=== PATIENT | female | born 2005 | race Caucasian/White ===

== ENCOUNTER 2023-09-16 08:47 | Day surgery (SDC) | payer OTHER, SELFPAY ==
[2023-09-16] VITALS (16 sets, daily range): BP systolic 98–149; BP diastolic 58–78; PULSE 105–137; RESP 16–28; TEMP 36.2–37.3; O2SAT 99–100; BMI 19.1
--- NOTE | 2023-09-16 | ECG_ITS ---
Test Reason : SYNCOPE Blood Pressure : / mmHG Vent. Rate : 122 BPM Atrial Rate : 122 BPM P-R Int : 124 ms QRS Dur : 068 ms QT Int : 298 ms P-R-T Axes : 072 090 049 degrees QTc Int : 424 ms Sinus tachycardia Rightward axis Borderline ECG No previous ECGs available Referred By: Generic ED Physician Electronically Signed By:ALYSSA GOMEZ MD
--- NOTE | ~2023-09-16 | CT_ITS ---
EXAMINATION: CT abdomen pelvis w IV con CLINICAL INFORMATION: Reason for Exam lower abdominal pain, r/o acute appy COMPARISON: No prior CT available for comparison. TECHNIQUE: Multidetector volumetric imaging was performed from the superior aspect of the liver through the pubic symphysis 85 mL of Omnipaque 350 injected Sagittal and coronal reformatted images were obtained on the technologist's workstation. This CT examination was performed using dose optimization techniques as appropriate, variously including the following: *Automated exposure control *Adjustment of mA and/or kV according to patient size (this includes techniques or standardized protocols for targeted exams where dose is matched to indication/reason for exam; i.e. extremities or head) *Use of iterative reconstruction technique DLP: 298 mGy-cm FINDINGS: LOWER THORAX: Included lung bases are clear. HEPATOBILIARY: No focal hepatic lesions. No biliary ductal dilatation. GALLBLADDER: Gallbladder unremarkable. SPLEEN: Spleen is normal in size. PANCREAS: No focal mass or ductal dilatation. STOMACH AND GASTROINTESTINAL TRACT: Stomach is grossly unremarkable. There is no bowel distention or thickening. No CT evidence of appendicitis. ADRENALS: No adrenal nodules. KIDNEYS/URETERS: No hydronephrosis, stones or solid mass lesions. URINARY BLADDER: Partially decompressed. PELVIC VISCERA: There is a free fluid in the pelvis hyperdense fluid suggesting blood bleeding. Complex right pelvic mass 2.8 cm might be of right ovarian origin could be a recently ruptured follicle. Engorgement of the periuterine and pelvic veins suggesting probably pelvic congestion. PERITONEUM: Free fluid and blood in the abdomen peritoneum, no free air. LYMPH NODES: No lymphadenopathy. VASCULAR:Abdominal aorta normal in size, no aneurysm found. BONES, ABDOMINAL WALL AND SOFT TISSUES: Age-appropriate changes of the spine and skeletal system, no destructive osteolytic or osteosclerotic bone lesion found CT/CT abdomen pelvis w IV con IMPRESSION: 1. Free fluid in the abdomen and pelvis, ascites, within the fluid there is hyperdense fluid in the pelvis suggesting intraperitoneal active bleeding. This is of uncertain etiology and source. Urgent SPORTS SPECIALIST consultation recommended. May consider diagnostic paracentesis. 2. Complex right pelvic mass 2.8 cm might be of right ovarian origin could be a recently ruptured follicle. 3. Engorgement of the periuterine and pelvic veins suggesting pelvic congestion. 4. No CT evidence of appendicitis. (Referring physician staff is being called, by physician staff assistance, to be alerted of the above critical findings and recommendations.) 09/16/2023 12:06 PM AJ
[2023-09-16 09:15] LABS: MANUAL DIFF FLAG NO
[2023-09-16 09:18] LABS: Basophils Percent Auto 0.2 % (0-2); Hematocrit 28.6 % (37.0-47.0); Hemoglobin 9.9 g/dl (12.0-16.0); Imm Gran Abs Auto 0.09 X10*3/uL (0.00-0.03); Imm Gran Pct Auto 0.5 % (0.0-0.4); Lymphocytes Absolute Auto 1.4 X10*3/uL (1.2-4.9); Lymphocytes Percent Auto 8.3 % (20-40); Mean Corpuscular HGB Conc 34.6 g/dl (31.0-35.0); Mean Corpuscular Hemoglobin 31.1 pg (27.0-33.0); Mean Corpuscular Volume 89.9 fL (80.0-98.0); Monocytes Absolute Auto 0.5 X10*3/uL (0.1-1.2); Monocytes Percent Auto 3.1 % (2-11); Neutrophils Percent Auto 87.9 % (45-73); Platelet Count 280 X10*3/uL (160-400); Red Blood Count 3.18 X10*6/uL (4.20-5.50); Red Cell Distribution Width 12.1 % (11.0-16.0)
[2023-09-16 09:24] LABS: Prothrombin Time 11.8 SEC (11.1-13.3)
[2023-09-16 09:27] LABS: Partial Thromboplastin Time 25.9 SEC (26.0-36.8)
--- NOTE | 2023-09-16 09:29 | ED.ABDPAIN ---
HPI - Abdominal Pain General Chief Complaint: Syncope Stated Complaint: abdominal pain, fainted this morning Time Seen by Provider: 09/16/23 09:08 Source: patient Mode of arrival: ambulatory Limitations: no limitations History of Present Illness ED Provider: Nubia Bennett APRN HPI narrative: 18-year-old female with no known medical history presents the ER with complaints of lower abdominal pain which began last evening with several episodes of diarrhea and 1 episode of vomiting. Patient reports she had some slight discomfort 6 days ago her lower abdomen but this resolved after about 24 hours. She denies any urinary symptoms, fevers, chills. Patient reports when she stands up she feels dizzy and she had several occasions when she was moving her bowels of fainting . She describes these as preceded with dizziness then black spots in vision. Patient reports they are witnessed by family and there was no fall or head strike noticed. Her last menstrual cycle was August 21. She is not currently on any contraception. She denies any abdominal surgical history. She denies any chest pain, shortness of breath, palpitations, black or bloody stools. Related Data Allergies Allergy/AdvReac Type Severity Reaction Status Date / Time No Known Allergies Allergy Verified 09/16/23 08:52 Review of Systems Review of Systems Yes all other systems are reviewed and are negative Constitutional: Reports no additional constitutional complaints, Denies body ache(s), Denies chills, Denies fever(s), Denies headache(s) and Denies weakness Eyes: Reports no additional eye complaints and Denies change in vision Reports system reviewed and no additional complaints, except as documented, Denies dizziness, Denies headache(s), Denies nasal congestion, Denies nasal discharge and Denies neck pain Cardiovascular: Reports no additional cardiovascular complaints, Denies chest pain, Reports syncope, Denies leg edema and Denies dyspnea Respiratory: Reports no additional respiratory complaints, Denies cough and Denies dyspnea Gastrointestinal: Reports no additional gastrointestinal complaints, Reports abdominal pain, Reports diarrhea, Reports nausea and Reports vomiting Genitourinary: Reports no additional female genitourinary complaints and Denies urinary incontinence Musculoskeletal: Reports no additional musculoskeletal complaints, Denies back pain, Denies arthralgias, Denies joint swelling, Denies neck pain, Denies numbness and Denies tingling Skin/Breast: Reports system reviewed and no additional complaints, except as docu and Denies rash Reports system reviewed and no additional complaints, except as documented, Denies Abnormal speech present, Denies dizziness, Reports syncope, Denies headache(s), Denies numbness, Denies tingling and Denies weakness PMFSH Past Medical History Attestation statement: The following information was validated with the patient. Source: old records reviewed and nursing notes reviewed Social History Social History Advance Directives: No Do you have a plan to hurt others: No Plan Physical Exam ED Vital Signs: Vital Signs - 24 hr 09/16/23 08:51 09/16/23 09:48 09/16/23 10:24 Temperature 97.2 F 98.7 F Pulse Rate 130 H 131 H 105 H Pulse Rate [Automated] Respiratory Rate 16 26 H Blood Pressure 114/76 108/62 98/58 L Pulse Oximetry 99 100 Oxygen Delivery Method Room Air Room Air 09/16/23 10:25 09/16/23 10:26 09/16/23 12:46 Temperature 99.1 F Pulse Rate 115 H 128 H 123 H Pulse Rate [Automated] Respiratory Rate 26 H Blood Pressure 106/64 108/61 111/64 Pulse Oximetry 100 Oxygen Delivery Method Room Air 09/16/23 13:27 09/16/23 13:42 09/16/23 13:55 Temperature 99.1 F 98 F Pulse Rate 126 H 124 H Pulse Rate [Automated] 120 H Respiratory Rate 28 H 16 Blood Pressure 138/78 149/78 H Pulse Oximetry Oxygen Delivery Method 09/16/23 13:55 Temperature Pulse Rate Pulse Rate [Automated] Respiratory Rate Blood Pressure Pulse Oximetry 100 Oxygen Delivery Method Room Air BMI result Body Mass Index 19.1 Const General: cooperative, healthy appearing, comfortable and no acute distress Orientation/consciousness: patient oriented x3 Limitations: no limitations HENMT Head: Yes normal to inspection Ears: hearing grossly normal bilaterally General nose exam: Normal external nose present Face and sinus: Yes normal facial exam Mouth: Normal oral and palatal mucosa present Throat: Yes posterior oropharynx normal Eyes General: appearance normal, both eyes and all related structures Pupils: Equal, round and reactive pupils present Neck Neck: Yes normal visual inspection Chest Chest palpation & inspection: normal inspection of the chest Resp Effort & Inspection: normal respiratory effort Auscultation: clear to auscultation bilaterally Cardio Rate: tachycardic Rhythm: regular rhythm Peripheral pulses: Peripheral pulses 2+ throughout GI Inspection: Yes normal to inspection Palpation (GI): Soft to palpation and Tenderness to palpation present (GI) in the LLQ and in the RLQ Auscultation: normal bowel sounds Back/Spine/Pelvis Thoracic/Lumbar Spine: thoracic and lumbar spine normal to inspection Skin General skin exam: no rashes or lesions noted Neuro General: patient oriented x3, no focal motor deficits and normal sensation to monofilament Cranial nerves: Yes Equal, round and reactive pupils present Cognition (Neuro): normal cognition Speech: No Abnormal speech present Gait exam (Neuro): Normal gait present Motor exam (neuro): 5/5 motor strength present throughout Extrem General: Yes normal to inspection Course Course Course Narrative: 1215- IMPRESSION: 1. Free fluid in the abdomen and pelvis, ascites, within the fluid there is hyperdense fluid in the pelvis suggesting intraperitoneal active bleeding. This is of uncertain etiology and source. Urgent BLOOD BANK LABORATORY TECHNOLOGIST consultation recommended. May consider diagnostic paracentesis. 2. Complex right pelvic mass 2.8 cm might be of right ovarian origin could be a recently ruptured follicle. 3. Engorgement of the periuterine and pelvic veins suggesting pelvic congestion. 4. No CT evidence of appendicitis. Repeat CBC sent. Type and screen sent. I consulted both gynecology and General surgery. Gynecology will be coming in to see the patient in general surgical consult as needed. Patient blood pressure stable. She is still tachycardic. She received an additional L of fluid. I consented her for blood. 2 units of PRBCs her placed on hold. Nursing and nursing underwriting clerks supervisor are aware as patient will likely need exploratory laparotomy and team was called Reevaluation(s) Reevaluation #1: Interval drop in hemoglobin and hematocrit. Patient consented for blood. 2 units of blood ordered. Patient will receive her 1st unit within [address] Frederick is at the bedside to see the patient. Reevaluation #2: 1330-going to OR with gynecology for exploratory laparotomy Medical Decision Making Medical Decision Making MDM Narrative: 18-year-old female with no known medical history presents the ER with complaints of lower abdominal pain which began last evening with several episodes of diarrhea and 1 episode of vomiting. Patient reports she had some slight discomfort 6 days ago her lower abdomen but this resolved after about 24 hours. She denies any urinary symptoms, fevers, chills. Patient reports when she stands up she feels dizzy and she had several occasions when she was moving her bowels of fainting . She describes these as preceded with dizziness then black spots in vision. Patient reports they are witnessed by family and there was no fall or head strike noticed. Her last menstrual cycle was August 21. She is not currently on any contraception. She denies any abdominal surgical history. She denies any chest pain, shortness of breath, palpitations, black or bloody stools. Patient with bilateral lower quadrant tenderness on exam. She is tachycardic. Her blood pressure is stable. I will obtain labs, UA, EKG, orthostatics. Patient will need US vs CT pending quant Differential Diagnosis Differential Diagnoses: The differential diagnosis associated with the presentation includes Ectopic , appendicitis, Syncope Admission/Observation Consideration of admission/observation: Escalation of care including admission/observation considered Active intraperitoneal bleeding requiring consultation by both gynecology and General surgery, admission for OR Consult Healthcare Provider Management of the patient was discussed with: Remote Sensing Specialist Yoly-shantanu course of care Lab Data MDM Lab Attestation statement: I reviewed the patient's lab results. 09/16/23 12:25 09/16/23 09:09 Labs: Lab Results 09/16/23 09/16/23 09/16/23 Range/Units 09:09 10:56 12:25 WBC 17.0 H 14.1 H (4.8-10.8) X10*3/uL RBC 3.18 L 2.83 L (4.20-5.50) X10*6/uL Hgb 9.9 L 8.8 L (12.0-16.0) g/dl Hct 28.6 L 25.2 L (37.0-47.0) % MCV 89.9 89.0 (80.0-98.0) fL MCH 31.1 31.1 (27.0-33.0) pg MCHC 34.6 34.9 (31.0-35.0) g/dl RDW 12.1 12.0 (11.0-16.0) % Plt Count 280 246 (160-400) X10*3/uL MPV 10.0 10.3 (9.4-12.3) fL Immature Gran % (Auto) 0.5 H 0.4 (0.0-0.4) % Neut % (Auto) 87.9 H 89.7 H (45-73) % Lymph % (Auto) 8.3 L 6.9 L (20-40) % [place] % (Auto) 3.1 2.9 (2-11) % Eos % (Auto) 0.0 0.0 (0-4) % Baso % (Auto) 0.2 0.1 (0-2) % Lymph # (Auto) 1.4 1.0 L (1.2-4.9) X10*3/uL [place] # (Auto) 0.5 0.4 (0.1-1.2) X10*3/uL Eos # (Auto) 0.0 0.0 (0.0-0.4) X10*3/uL Baso # (Auto) 0.0 0.0 (0.0-0.2) X10*3/uL Abs Immat Gran (auto) 0.09 H 0.06 H (0.00-0.03) X10*3/uL Absolute Neuts (auto) 15.0 H 12.6 H (2.0-8.3) x10*3/uL Absolute Nucleated RBC 0.000 0.000 (0.0-0.012) X10*3/uL Nucleated RBC % (auto) 0.0 0.0 (0.0-0.2) /100WBC PT 11.8 (11.1-13.3) SEC INR 1.0 (0.9-1.1) APTT 25.9 L (26.0-36.8) SEC Sodium 136 (135-145) mmol/L Potassium 4.1 (3.3-5.1) mmol/L Chloride 105 (96-108) mmol/L Carbon Dioxide 21 L (22-29) mmol/L Anion Gap 14 (12-20) BUN 15 (9-16) mg/dL Creatinine 0.75 (0.5-1.4) mg/dL Estim Creat Clear Calc 86.7 Estimated GFR > 60 Random Glucose 149 H (60-115) mg/dL Lactic Acid 1.9 (0.5-2.0) mmol/L Calcium 8.9 (8.4-10.2) mg/dL Magnesium 1.8 (1.6-2.6) mg/dL Total Bilirubin 0.4 (0.0-1.0) mg/dL Direct Bilirubin 0.2 (0.0-0.5) mg/dL AST 18 (5-31) U/L ALT 9 (0-31) U/L Alkaline Phosphatase 49 (39-117) U/L Troponin I High Sens < 2.7 (<3.5-17.0) ng/L Total Protein 7.1 (6.5-8.0) g/dL Albumin 4.3 (3.5-5.0) g/dL Lipase 12 (8-78) U/L TSH 1.51 (0.32-4.0) uIU/mL Beta HCG, Quant < 2 mIU/mL Urine Color Yellow Urine Appearance Clear Urine pH 5.5 (5.0-9.0) Ur Specific [place] >= 1.030 H (1.005-1.025) Urine Protein Negative (Neg-Trace) mg/dL Urine Glucose (UA) Negative (Negative) mg/dL Urine Ketones 40 (Negative) mg/dL Urine Blood Negative (Negative) Urine Nitrite Negative (Negative) Ur Leukocyte Esterase Small (1+) H (Negative) Urine RBC 0-2 (0-2) /HPF Urine WBC 6-10 H (0-5) /HPF Ur Squamous Epith Cells 3-5 (0-2) /HPF Urine Bacteria Trace (None Seen) Hyaline Casts 3-5 (0-2) /LPF Blood Type O Positive Antibody Screen NEGATIVE Crossmatch See Detail Independent Interpretation I performed an independent interpretation of an: EKG and CT Scan Interpretation: I independently viewed the EKG which shows sinus tachycardia with a rate of 122, normal NV, normal QRS, normal QT Radiology Impression Discussion of test interpretation with radiology: I have reviewed the radiologist's reading. Radiologist Impression: IMPRESSION: 1. Free fluid in the abdomen and pelvis, ascites, within the fluid there is hyperdense fluid in the pelvis suggesting intraperitoneal active bleeding. This is of uncertain etiology and source. Urgent BLOOD BANK LABORATORY TECHNOLOGIST consultation recommended. May consider diagnostic paracentesis. 2. Complex right pelvic mass 2.8 cm might be of right ovarian origin could be a recently ruptured follicle. 3. Engorgement of the periuterine and pelvic veins suggesting pelvic congestion. 4. No CT evidence of appendicitis. Medications Administered Generic Name Dose Route Start Last Admin Trade Name Freq PRN Reason Stop Dose Admin Sodium Chloride 1,000 mls @ 999 mls/hr 09/16/23 13:32 09/16/23 13:33 Ns IV 09/16/23 14:32 999 mls/hr .Q1H1M STA Administration Discontinued Medications Generic Name Dose Route Start Last Admin Trade Name Rayray PRN Reason Stop Dose Admin Sodium Chloride 1,000 mls @ 999 mls/hr 09/16/23 09:30 09/16/23 11:00 Ns IV 09/16/23 10:30 Infused .Q1H1M STA Infusion Sodium Chloride 100 mls @ 100 mls/hr 09/16/23 12:28 09/16/23 13:32 Ns IV 09/16/23 13:27 100 mls/hr ONCE ONE Administration Sodium Chloride 1,000 mls @ 999 mls/hr 09/16/23 13:26 09/16/23 13:33 Ns IV 09/16/23 14:26 Infused .Q1H1M STA Infusion Iohexol 100 ml 09/16/23 11:14 09/16/23 11:20 Iohexol 350 Mg/Ml 100 Ml Infus..Btl IV 09/16/23 11:15 85 ml ONCE ONE Administration Morphine Sulfate 2 mg 09/16/23 09:30 09/16/23 09:50 Morphine Sulfate 2 Mg/Ml Cartridge IVPUSH 09/16/23 09:31 2 mg ONCE ONE Administration Protocol Critical Care Time Critical Care Time Critical Care Time: Yes Total Critical Care Time: 90 Attestation: Active intraperitoneal bleeding requiring multiple consultations, admission to OR for intervention, anemia requiring blood transfusion Discharge Plan Discharge Clinical Impression: Intraperitoneal bleeding, Anemia, Leukocytosis Patient Disposition: Admitted As Inpatient Discharge Date/Time: 09/16/23 13:58
[2023-09-16] MEDS: 0.9 % Sodium Chloride 1,000 ML 999 ML IV ×3 (09:40→13:33)
--- NOTE | 2023-09-16 09:41 | PC.NURSE ---
pt declined morphine d/t family hx of allergic rxns to medication, provider aware. pt a&ox4, 20G PIV L AC, cafeteria monitor applied - sinus tach, other vss. 1L NS running.
[2023-09-16 09:42] LABS: Alanine Aminotransferase 9 U/L (0-31); Albumin Level 4.3 g/dL (3.5-5.0); Alkaline Phosphatase 49 U/L (39-117); Anion Gap 14 (12-20); Aspartate Amino Transferase 18 U/L (5-31); Bilirubin Direct 0.2 mg/dL (0.0-0.5); Bilirubin Total 0.4 mg/dL (0.0-1.0); Blood Urea Nitrogen 15 mg/dL (9-16); Calcium 8.9 mg/dL (8.4-10.2); Carbon Dioxide 21 mmol/L (22-29); Chloride 105 mmol/L (96-108); Creatinine Clr Calc Pharmacy 86.7; Estimated Glomerular Filt Rate > 60; Glucose Random 149 mg/dL (60-115); Lipase 12 U/L (8-78); Magnesium 1.8 mg/dL (1.6-2.6); Potassium 4.1 mmol/L (3.3-5.1); Sodium 136 mmol/L (135-145); Total Protein 7.1 g/dL (6.5-8.0)
[2023-09-16 09:46] LABS: Troponin-I High Sensitivity < 2.7 ng/L (<3.5-17.0)
[2023-09-16] MEDS: Morphine Sulfate 2 MG/ML CARTRIDGE IVPUSH (09:50)
[2023-09-16 10:00] LABS: HCG Quantitative < 2 mIU/mL; TSH reflex Free T4 1.51 uIU/mL (0.32-4.0)
[2023-09-16 11:05] LABS: Appearance Urine Clear; Color Urine Yellow; Glucose Urine UA Negative (Negative); Leukocyte Esterase Urine Small (1+) (Negative); Nitrite Urine Negative (Negative); PH 5.5 (5.0-9.0); Specific Gravity - Urine >= 1.030 (1.005-1.025); UMIC TRIGGER UACC YES; Urine Blood Negative (Negative); Urine Ketones 40 mg/dL (Negative); Urine Protein Negative (Neg-Trace)
[2023-09-16] MEDS: iohexoL 350 MG/ML 100 ML INFUS..BTL IV (11:20)
[2023-09-16 11:24] LABS: Bacteria Urine Trace (None Seen); RBC Urine 0-2 /HPF (0-2); UACC Culture Trigger YES
--- NOTE | 2023-09-16 12:39 | PM.GYNCN ---
PACK OUT OPERATOR - CN: HPI Data of Consult Consult date: 09/16/23 Primary Care Provider: Unknown Physician Consult Narrative Narrative: I was consulted on Angelia Mendiola who a is a 18 year old female who presented emergency room complaining of pelvic pain. The pain started during intercourse yesterday started acutely and gradually has gotten worse over time , the patient had 2 episodes of syncope yesterday , no associated vaginal discharge or bleeding no fever or chills. Initial H&H was 9.9/28.6 repeated after 3 hours dropped to 8.8/25.2, hCG less than 2, the patient has been on IV hydration cc:: CC: OB [facility] Social History Social History Comment: counts correct Meds Allergies Allergy/AdvReac Type Severity Reaction Status Date / Time No Known Allergies Allergy Verified 09/16/23 08:52 Active Medications: Current Medications Sodium Chloride (Ns) 100 mls @ 100 mls/hr IV ONCE ONE Stop: 09/16/23 13:27 Sodium Chloride (Ns) 100 mls @ 100 mls/hr IV ONCE ONE Stop: 09/16/23 13:27 PACK OUT OPERATOR Physical Exam Vitals Vital signs: Temp Pulse Resp BP Pulse Ox O2 Del Method 98.7 F 128 H 26 H 108/61 100 Room Air 09/16/23 09:48 09/16/23 10:26 09/16/23 09:48 09/16/23 10:26 09/16/23 09:48 09/16/23 09:48 BMI result Body Mass Index 19.1 Cardiovascular Auscultation: RRR Abdomen Auscultation/Inspection/Palpation: Tenderness (Bilateral lower tenderness), Guarding and Rebound tenderness Female Genitalia (Pelvic) Bladder/Urethra: Normal meatus Vulva: No lesions Vagina: Nontender Cervix: Grossly normal Uterus: Normal size Adnexa/Parametria: Adnexal Tenderness: Bilateral and Adnexal Mass: Right PACK OUT OPERATOR - Results Labs 09/16/23 12:25 09/16/23 09:09 Labs: Short CBC 09/16/23 Range/Units 09:09 WBC 17.0 H (4.8-10.8) X10*3/uL Hgb 9.9 L (12.0-16.0) g/dl Hct 28.6 L (37.0-47.0) % Plt Count 280 (160-400) X10*3/uL BMP 09/16/23 09:09 Sodium 136 Potassium 4.1 Chloride 105 Carbon Dioxide 21 L BUN 15 Creatinine 0.75 Calcium 8.9 Liver Function 09/16/23 Range/Units 09:09 Total Bilirubin 0.4 (0.0-1.0) mg/dL Direct Bilirubin 0.2 (0.0-0.5) mg/dL AST 18 (5-31) U/L ALT 9 (0-31) U/L Alkaline Phosphatase 49 (39-117) U/L Albumin 4.3 (3.5-5.0) g/dL Urine 09/16/23 Range/Units 10:56 Urine Color Yellow Urine Appearance Clear Urine pH 5.5 (5.0-9.0) Ur Specific [place] >= 1.030 H (1.005-1.025) Urine Protein Negative (Neg-Trace) mg/dL Urine Glucose (UA) Negative (Negative) mg/dL Imaging CT scan - pelvis: Radiologist's impression: ITS Impressions Abdomen/Pelvis CT 09/16/23 11:24 IMPRESSION: 1. Free fluid in the abdomen and pelvis, ascites, within the fluid there is hyperdense fluid in the pelvis suggesting intraperitoneal active bleeding. This is of uncertain etiology and source. Urgent PACK OUT OPERATOR consultation recommended. May consider diagnostic paracentesis. 2. Complex right pelvic mass 2.8 cm might be of right ovarian origin could be a recently ruptured follicle. 3. Engorgement of the periuterine and pelvic veins suggesting pelvic congestion. 4. No CT evidence of appendicitis. (Referring physician staff is being called, by physician staff assistance, to be alerted of the above critical findings and recommendations.) 09/16/2023 12:06 PM Assessment and Plan (1) Ruptured ovarian cyst: Status: Acute Plan Given the low H&H at presentation and it dropped within 3 hours, will transfuse with 2 units of blood transfusion, continue aggressive IV hydration. OR team anaesthesia and anesthesia on-callcontacted, will proceed with emergent laparoscopy possible laparoscopic ovarian cystectomy/oophorectomy, possible laparotomy. Discussed with the patient her clinical scenario intra-abdominal pelvic active bleeding with complex ovarian cyst, possible ruptured ovarian cyst , and the indication for surgical management amber. Recommended laparoscopy, evacuation of hemoperitoneum, ovarian cystectomy possible oophorectomy possible laparotomy. All the pros and cons were discussed with the patient including the risks including but not limited to: Risk of bleeding, infection, possible injury to bladder, bowel, ureter, bladder, possible injury to vessels and need for blood transfusion with all its risks including HIV, hepatitis-B and C and other blood borne pathogens, possible negative impact on future fertility. All questions answered, the patient verbalized understanding agreed with the plan and signed the consent.
[2023-09-16 12:43] LABS: MANUAL DIFF FLAG NO
[2023-09-16 12:46] LABS: Basophils Percent Auto 0.1 % (0-2); Hematocrit 25.2 % (37.0-47.0); Hemoglobin 8.8 g/dl (12.0-16.0); Imm Gran Abs Auto 0.06 X10*3/uL (0.00-0.03); Imm Gran Pct Auto 0.4 % (0.0-0.4); Lymphocytes Percent Auto 6.9 % (20-40); Mean Corpuscular HGB Conc 34.9 g/dl (31.0-35.0); Mean Corpuscular Hemoglobin 31.1 pg (27.0-33.0); Mean Platelet Volume 10.3 fL (9.4-12.3); Monocytes Absolute Auto 0.4 X10*3/uL (0.1-1.2); Monocytes Percent Auto 2.9 % (2-11); Neutrophils Absolute Auto 12.6 x10*3/uL (2.0-8.3); Neutrophils Percent Auto 89.7 % (45-73); Platelet Count 246 X10*3/uL (160-400); Red Blood Count 2.83 X10*6/uL (4.20-5.50); White Blood Count 14.1 X10*3/uL (4.8-10.8)
[2023-09-16 12:56] LABS: Lactic Acid 1.9 mmol/L (0.5-2.0)
--- NOTE | 2023-09-16 13:11 | HO.ANESPROP2 ---
HPI - Anesthesia Eval Consult details Narrative: ovary cyst bleeding PMFSH Active Problems Active Problems: All Active Problems Leukocytosis (Acute) Anemia (Acute) Intraperitoneal bleeding (Acute) Family History Family history of problems with anesthesia: No Surgical History History of Problems with Anesthesia: No Social History Social History Comment: counts correct Advance Directives: No Do you have a plan to hurt others: No Plan Meds Allergies Allergy/AdvReac Type Severity Reaction Status Date / Time No Known Allergies Allergy Verified 09/16/23 08:52 Active Medications: Current Medications Sodium Chloride (Ns) 100 mls @ 100 mls/hr IV ONCE ONE Stop: 09/16/23 13:27 Sodium Chloride (Ns) 100 mls @ 100 mls/hr IV ONCE ONE Stop: 09/16/23 13:27 Exam Height,Weight and Vital Signs: Height 5 ft 1 in Weight 45.9 kg Last Vital Signs Temp 99.1 F 09/16/23 12:46 Pulse 123 H 09/16/23 12:46 Resp 26 H 09/16/23 12:46 BP 111/64 09/16/23 12:46 Pulse Ox 100 09/16/23 12:46 O2 Del Method Room Air 09/16/23 12:46 Pertinent Lab Results Pertinent Lab Results: Laboratory Tests 09/16/23 09/16/23 09/16/23 09:09 10:56 12:25 WBC 17.0 H 14.1 H RBC 3.18 L 2.83 L Hgb 9.9 L 8.8 L Hct 28.6 L 25.2 L MCV 89.9 89.0 MCH 31.1 31.1 MCHC 34.6 34.9 RDW 12.1 12.0 Plt Count 280 246 MPV 10.0 10.3 Immature Gran % (Auto) 0.5 H 0.4 Neut % (Auto) 87.9 H 89.7 H Lymph % (Auto) 8.3 L 6.9 L [place] % (Auto) 3.1 2.9 Eos % (Auto) 0.0 0.0 Baso % (Auto) 0.2 0.1 Lymph # (Auto) 1.4 1.0 L [place] # (Auto) 0.5 0.4 Eos # (Auto) 0.0 0.0 Baso # (Auto) 0.0 0.0 Abs Immat Gran (auto) 0.09 H 0.06 H Absolute Neuts (auto) 15.0 H 12.6 H Absolute Nucleated RBC 0.000 0.000 Nucleated RBC % (auto) 0.0 0.0 PT 11.8 INR 1.0 APTT 25.9 L Sodium 136 Potassium 4.1 Chloride 105 Carbon Dioxide 21 L Anion Gap 14 BUN 15 Creatinine 0.75 Estim Creat Clear Calc 86.7 Estimated GFR > 60 Random Glucose 149 H Lactic Acid 1.9 Calcium 8.9 Magnesium 1.8 Total Bilirubin 0.4 Direct Bilirubin 0.2 AST 18 ALT 9 Alkaline Phosphatase 49 Troponin I High Sens < 2.7 Total Protein 7.1 Albumin 4.3 Lipase 12 TSH 1.51 Beta HCG, Quant < 2 Urine Color Yellow Urine Appearance Clear Urine pH 5.5 Ur Specific [place] >= 1.030 H Urine Protein Negative Urine Glucose (UA) Negative Urine Ketones 40 Urine Blood Negative Urine Nitrite Negative Ur Leukocyte Esterase Small (1+) H Urine RBC 0-2 Urine WBC 6-10 H Ur Squamous Epith Cells 3-5 Urine Bacteria Trace Hyaline Casts 3-5 Blood Type O Positive Crossmatch See Detail Airway Mallampati Class: I TM Dist: >3cm Neck ROM: Full Loose/Missing/Broken Teeth: No Heart: RRR Lungs: CTA Assessment and Plan Assessment Anesthesia Assessment: Anesthesia Plan Discussed and Chart Reviewed Final Anesthetic Review Family History of Problems with Anesthesia: No History of Problems with Anesthesia: No NPO: Yes ASA Class: I and Emergency Final Preanesthetic Review: No Changes in Pt Med Stat, Meds/Allgs Chart Reviewed and Consent Obtained/Reviewed Patient Risk: Low Procedure Risk: Intermediate Anesthetic Plan Anesthetic Plan: GA Disposition: Standard PACU
--- NOTE | 2023-09-16 13:34 | PC.NURSE ---
patient resting quietly in ED stretcher, receiving blood transfusion rate 100ml/hr, patient recieivng 3rd liter of NS. patient has two patent bilat IVs 20# LAC and 18# in the right AC. patient is alert and oriented, VSS. family at bedside
--- NOTE | 2023-09-16 13:40 | PC.NURSE ---
RN-RN report given to surg nurse.
[2023-09-16 14:56] LABS: Bacterial Vaginosis PCR NEGATIVE (Negative); Candida Group PCR NOT DETECTED (Not Detect); Candida glab krusei PCR NOT DETECTED (Not Detect); Trichomonas vaginalis PCR NOT DETECTED (Not Detect)
--- NOTE | 2023-09-16 15:24 | PM.OP ---
Brief Operative Note Date of Service: 09/16/23 Pre-op diagnosis: Right Ruptured ovarian cyst with hemoperitoneum Post-op diagnosis: same (Ruptured right ovarian cyst with 1000 cc with hemoperitoneum) Procedure: Laparoscopic right ovarian cystectomy with evacuation of a 1000 cc of hemoperitoneum Surgeon: Titus Frederick MD Anesthesia: GETA Was an Armature Winder Repair Helper used for this Procedure?: No Estimated blood loss (mL): 0 Pathology: other (Right ovarian cyst) Condition: stable Disposition: PACU
--- NOTE | 2023-09-16 15:26 | P.OP_ITS ---
Operative Note Operative Note Date of Service: 09/16/23 Narrative: PREOPERATIVE DIAGNOSIS:? Right ruptured ovarian cyst with abdominal bleeding POSTOPERATIVE DIAGNOSIS:? Right ruptured ovarian cyst with 1000 cc of hemoperitoneum QBL: Minimal Anesthesia: GETA SURGEON:? Titus Frederick MD?? Sand System Operator: Complications: None Pathology: Right ovarian cyst DESCRIPTION OF PROCEDURE:?The patient was taken to the OR where general anesthesia was easily obtained. The patient was then prepped and draped in a sterile fashion and placed in dorsal lithotomy position. A speculum was introduced into the patient?s vagina for cervical visualization. Once the cervix was visualized, a single-toothed tenaculum was applied to the upper lip of the cervix, and a Humi manipulator was introduced into the patient?s cervix. The single tooth tenaculum was then removed and hemostasis was assured?using pressure. a Reich catheter?was inserted and clear urine started draining. Gloves were changed to clean ones. Attention was then drawn to the abdomen where a 10 mm longitudinal incision was done intra umbilical and carried down all the way to the fascia, which was tented?up using 2 Wilbert clamps and was nicked in the midline and then extended on both end of the incision?, them using 2 pick?ups the peritoneum?was entered with Metzenbaum scissors and under direct visualization, a 10 mm Hernandez trocar was introduced into the patient?s abdomen. Once intraperitoneal placement was confirmed with direct visualization, pneumoperitoneum was started & was easily obtained.Then, two fingerbreadths above the pubic symphysis and towards the?left lower quadrant, under direct visualization, a 10 mm trocar was then introduced into the patient?s abdomen and a 3rd 5 mm trocar on the right?lower quadrant was placed?in a similar manner. The patient was placed in Trendelenburg position, Inspection revealed large amou nt of hemoperitoneum, suction irrigation was done, normal pelvic structures & right ovary and bilateral fallopian tubes were visualized, and a right bleeding ovarian cyst was identified. Attention was then turned to the right bleeding ovarian cyst, atraumatic forceps was used to grasp the ovary stabilize it anterior to the uterus using LigaSure right ovarian cystectomy was performed in a normal fashion and hemostasis was assured using cautery . Good hemostasis was noted from both fallopian tube sites and the operative site. Specimen were then removed from the patient?s abdomen. Copious irrigation was done. Once good hemostasis was noted from the patient?s abdomen, pneumoperitoneum was deflated and all trocars were removed. Infraumbilical fascia was closed with 0 Vicryl and interrupted suture. The skin was closed with 4-0 Vicryl. The Right and left?lower quadrant ports were closed with 0 Vicryl. Bupivicaine 0.25 10 cc were injected subcuticularly in the 3 incisions. Then speculum was put back in the vagina inspection revealed?hemostasis at the site of the tenaculum, the?humi manipulator was removed? and Reich was draining clear urine was taken out too. Sponge, lap and needle counts were correct x2. The patient was taken to the recovery room in stable condition.
[2023-09-16 15:29] LABS: CT PCR NOT DETECTED (Not Detect.); NG PCR NOT DETECTED (Not Detect.)
[2023-09-16 16:13] LABS: Hematocrit 27.4 % (37.0-47.0); Hemoglobin 9.4 g/dl (12.0-16.0)
--- NOTE | 2023-09-17 19:46 | HO.POSTANES ---
Post Anesthesia Evaluation Post Anesthesia Evaluation Date of Service: 09/17/23 Anesthesia: General Endotracheal-GETA Mental Status: Awake Pain Control: Satisfactory Nausea/Vomiting: None Hydration: Adequate Anesthesia-Related Issues: No Anes. Related Issues
== END 2023-09-16 16:58 | disposition home or self-care (01) ==
LOC: HO.ED 13:58 → HO.SSS 13:58
PROVIDERS: Anesthesiology; Nurse Practitioner Family; Physician Assistant Medical; Emergency Provider Emergency Medicine; Visit Provider Obstetrics & Gynecology
PROC: (CPT 49320; principal; 2023-09-16 13:00)
DX: N83.11 Corpus luteum cyst of right ovary (principal); K66.1 Hemoperitoneum; R10.2 Pelvic and perineal pain; D72.829 Elevated white blood cell count, unspecified; D64.9 Anemia, unspecified; R00.0 Tachycardia, unspecified
CPT/HCPCS: 58925; 0352U; 36415; 36430; 74177; 80048; 80076; 81001; 83605; 83690; 83735; 84443; 84484; 84702; 85014; 85018; 85025; 85610; 85730; 86850; 86900; 86901; 86923; 87086; 87491; 87591; 88304; 88305; 93005; 96361; 96374; 99285; J1100; J1885; J2250; J2270; J2405; J2704; J2795; J3010; P9016; Q9967

== ENCOUNTER → 2023-09-16 08:55 | Outpatient (BNV) | payer OTHER, SELFPAY | PROVIDERS: Emergency Provider Emergency Medicine; Visit Provider Internal Medicine Cardiovascular Disease | DX: R55 Syncope and collapse (principal) | CPT/HCPCS: 93010 ==

== ENCOUNTER → 2023-09-16 13:57 | Outpatient (BNV) | payer OTHER, SELFPAY | PROVIDERS: Emergency Provider Emergency Medicine; Visit Provider Obstetrics & Gynecology | DX: N83.291 Other ovarian cyst, right side (principal) | CPT/HCPCS: 58925; 99283 ==

== ENCOUNTER 2023-09-18 15:47 | Outpatient (REF) | payer OTHER, SELFPAY ==
[2023-09-18 16:13] LABS: Hematocrit 28.4 % (37.0-47.0); Hemoglobin 9.3 g/dl (12.0-16.0); Mean Corpuscular HGB Conc 32.7 g/dl (31.0-35.0); Mean Corpuscular Hemoglobin 29.5 pg (27.0-33.0); Mean Corpuscular Volume 90.2 fL (80.0-98.0); Mean Platelet Volume 10.6 fL (9.4-12.3); Platelet Count 228 X10*3/uL (160-400); Red Blood Count 3.15 X10*6/uL (4.20-5.50); Red Cell Distribution Width 14.3 % (11.0-16.0); White Blood Count 9.1 X10*3/uL (4.8-10.8)
== END 2023-09-18 15:48 | disposition home or self-care (01) ==
LOC: HO.LAB 15:47
PROVIDERS: Visit Provider Obstetrics & Gynecology
DX: N83.209 Unspecified ovarian cyst, unspecified side (principal)
CPT/HCPCS: 36415; 85027

== ENCOUNTER 2023-09-28 10:34 | Outpatient (AMB) | payer OTHER, SELFPAY ==
--- NOTE | 2023-09-28 10:37 | MHC.OFFVIS ---
Vital Signs 09/28/23 10:54 Height 5 ft 1 in Weight 100 lb BMI 18.9 BP 104/60 Intake Visit Reasons: post op per Line Up Examiner Required: No Information Interpreted: non-clinical & clinical Accompanied by: Significant Other Allergies No Known Allergies Allergy (Verified 09/28/23 10:55) Is last menstrual period known: Yes Last menstrual period: 08/22/23 HPI Comments Details: Presenting 2 weeks postoperatively from laparoscopic right ovarian cystectomy and evacuation of hemoperitoneum. Doing well with no complaints. The pathology showed the following: Ovary, right cyst, excision: Hemorrhagic corpus luteum and follicle cysts. [facility] Medical History Ruptured ovarian cyst Anemia Family History Mother Lupus Father Gout Social History Household Members Other:: Patient live in [place] ,she will return home Alcohol intake: never Comment: counts correct Patient Tobacco Use Status: Never used Tobacco Current occupational status: student Sexual orientation: Straight/Heterosexual Gender identity: Female Female Reproductive History Menstrual Date of last menstrual period: 08/22/23 Total pregnancies: 0 Review of Systems Const All systems reviewed & are unremarkable except as noted in HPI and below Reports as per HPI and Reports no additional complaints GI Reports no additional complaints Reports no additional complaints Physical Exam Vital Signs: BMI result Body Mass Index 18.9 GI Palpation (GI): Soft to palpation, nontender and no guarding Assessment & Plan Assessment & Plan (1) Ruptured ovarian cyst: Comment: Status post laparoscopic R ovarian cystectomy Code(s): N83.209 - Unspecified ovarian cyst, unspecified side Category: Medical Plan: Discussed with the patient intraoperative finding, the pathology results. Recommended iron sulfate 325 mg p.o. t.i.d. for 8 weeks and repeat CBC then, the patient is traveling back to her home state [place] in 2 days, recommended the patient to contact her PCP for CBC in 8 weeks to determine the indication for further iron or to discontinue it. Weight lifting restriction for 10 more weeks no more than 5 lb recommended to the patient. Instructions given the patient to call or go to emergency room in case of fever above 100.4, abdominal pain, heavy vaginal bleeding, nausea or vomiting. All questions answered, the patient verbalized understanding Coding Level of Care Code Est Pt Level 3 (50436) Diagnoses Ruptured ovarian cyst N83.209
[2023-09-28 10:54] VITALS: BP 104/60; BMI 18.9
== END 2023-09-28 12:49 | disposition home or self-care (01) ==
LOC: HO.HWS 10:34
PROVIDERS: Visit Provider Obstetrics & Gynecology
DX: N83.209 Unspecified ovarian cyst, unspecified side (principal)
CPT/HCPCS: 99024

== ENCOUNTER → 2023-09-28 10:34 | Outpatient (BNVA) | payer OTHER, SELFPAY | PROVIDERS: Visit Provider Obstetrics & Gynecology ==